=== PATIENT | male | born 1990 | race Caucasian/White ===

== ENCOUNTER 2018-05-24 19:29 | Emergency (ER) | payer OTHER, SELFPAY ==
[2018-05-24 19:31] VITALS: BP 150/102; PULSE 91; RESP 17; TEMP 36.8; O2SAT 97; BMI 26.5
--- NOTE | 2018-05-24 20:59 | ED.VISSUMM ---
- ER Visit Summary Date of Service: 05/24/18 Chief Complaint: Left ear pain History of Present Illness: The patient is a 27 M who initially had nasal congestion. He developed ear pain. He was seen at a urgent care center on Friday and prescribed amoxicillin 500 mg 3 times daily. He presents because of persistent pain with no improvement. Denies headache. Denies any ocular, visual symptoms. He denies any muffled hearing. Does report ringing in his ears. Also complains of jaw pain. Denies any dental pain. He denies sore throat. Eyes change in his voice. When significant other was asked she agrees that his voice does sound nasal. Physical Examination: Patient appears no distress. Blood pressure is elevated. Nasal mucosa is boggy. Right TM is normal. Left TM is dull with no erythema. External auditory canals normal. Posterior pharynx unremarkable. Heart is regular. Lungs clear to auscultation. There are no skin lesions noted. Trach is midline. There is no stridor. There is no cervical lymphadenopathy. There is no discomfort with pushing on the tragus or pulling on the auricle. Test Results: None Emergency Department Course and Treatment: Patient was informed he is having discomfort because there is water behind the eardrum. He was informed his illness is a viral illness and antibiotics do not make viral illnesses better. Treatment Plan: Decongestant and anti-inflammatory Disposition: Discharged home Impression: Left ear pain secondary to serous otitis Viral upper respiratory infection This note was generated with [employer] dictation software. It may contain incorrect words, spelling, and punctuation that were not noted in review of the chart prior to signing ED Disposition - Plan for ED Patient: Disposition: Home or Assisted Living Chief Complaint: Ear Problem Instructions: ED Otitis Media Serous Adult, ED URI Viral Referrals: NOT,DEFINED [Primary Care Provider] - Doctor,Your [STAFF PHYSICIAN] - 1 Week if not improving
[2018-05-24 21:32] VITALS: BP 148/70; PULSE 90; RESP 18; O2SAT 96
== END 2018-05-24 21:33 | disposition home or self-care (01) ==
LOC: ED 21:14
PROVIDERS: Emergency Provider Emergency Medicine
DX: H65.92 Unspecified nonsuppurative otitis media, left ear (principal); H92.02 Otalgia, left ear; J06.9 Acute upper respiratory infection, unspecified
CPT/HCPCS: 99282

== ENCOUNTER 2021-12-28 16:46 | Outpatient (CLI) | payer OTHER, SELFPAY ==
[2021-12-28 17:36] LABS: Absolute Lymphocyte Count 1.95 X10^3/uL (0.83-4.51); Absolute Neutrophil Count 4.3 X10^3/uL (2.0-7.7); Basophil# 0.03 X10^3/uL; Basophil% 0.4 % (0-1); Eosinophil# 0.06 X10^3/uL; Eosinophils% 0.9 % (0-5); Hematocrit 46.1 % (40-54); Hemoglobin 15.5 g/dL (13.0-16.5); Lymphocyte # 1.95 X10^3/ul (0.83-4.51); Lymphocyte % 28.6 % (19-41); Mean Corp Hgb Conc 33.6 g/dL (32-36); Mean Corpuscular Hgb 29.4 pg (27.0-32.0); Mean Corpuscular Volume 87.5 fL (80-94); Mean Platelet Vol. 11.2 fl (6.2-12.0); Monocyte# 0.48 X10^3/uL; NRBC Flagged by Analyzer 0 % (0-5); Neutrophil # 4.27 X10^3/uL (2.7-7.7); Neutrophil % 62.8 % (47-70); Platelet Count 212 K/mm3 (150-450); RBC Distribution Width CV 12.2 % (11.6-14.6); RBC Distribution Width SD 39.1 fl (35.1-43.9); Red Blood Count 5.27 M/mm3 (4.6-6.2); White Blood Count 6.8 K/mm3 (4.4-11.0)
[2021-12-28 18:28] LABS: Anion Gap 9 (5-15); BUN 17 mg/dL (7-18); BUN/Creat Ratio 15.9 RATIO (10-20); Calcium,Total 9.4 mg/dL (8.5-10.1); Chloride 106 mmol/L (98-107); Cholesterol 177 mg/dL (200); Creatinine, Serum 1.07 mg/dL (0.70-1.30); EST Glomerular Filtration Rate 85 mL/min (>60); Est Glom Filt Rate - Afr Amer 103 mL/min (>60); Glucose 79 mg/dL (74-106); High Density Lipoprotein 63 mg/dL; Potassium 3.8 mmol/L (3.5-5.1); Sodium Level 139 mmol/L (136-145); Triglycerides 51 mg/dL; Very Low Density Lipoprotein 10 mg/dL (5-40)
== END 2021-12-28 23:59 | disposition home or self-care (01) ==
LOC: MFPLAB 16:47
PROVIDERS: PCP Family Medicine; Referring Provider Family Medicine; Visit Provider Family Medicine
DX: Z00.00 Encounter for general adult medical examination without abnormal findings (principal)
CPT/HCPCS: 36415; 80048; 80061; 85025

== ENCOUNTER 2023-03-19 05:53 | Day surgery (SDC) | payer OTHER, SELFPAY ==
--- NOTE | 2023-03-13 13:45 | EKG12_ITS ---
Test Reason : PRE OP Blood Pressure : / mmHG Vent. Rate : 097 BPM Atrial Rate : 097 BPM P-R Int : 146 ms QRS Dur : 092 ms QT Int : 340 ms P-R-T Axes : 066 069 040 degrees QTc Int : 431 ms Normal sinus rhythm with sinus arrhythmia Normal ECG Confirmed by KAYLEY HIGGINBOTHAM, GLORIA ([id number]), senior technical editor GALILEO GRULLON ([id number]) on 03/14/2023 8:14:04 AM Referred By: Ender Angulo Confirmed By:GLORIA ZALDIVAR MD
[2023-03-13 14:17] LABS: Hematocrit 46.7 % (40-54); Hemoglobin 15.6 g/dL (13.0-16.5); Mean Corp Hgb Conc 33.4 g/dL (32-36); Mean Corpuscular Hgb 30.4 pg (27.0-32.0); Mean Corpuscular Volume 90.9 fL (80-94); Mean Platelet Vol. 10.8 fl (6.2-12.0); Platelet Count 216 K/mm3 (150-450); RBC Distribution Width CV 12.4 % (11.6-14.6); RBC Distribution Width SD 41.1 fl (35.1-43.9); Red Blood Count 5.14 M/mm3 (4.6-6.2); White Blood Count 5.3 K/mm3 (4.4-11.0)
[2023-03-13 14:29] LABS: Partial Thromboplast Time 32.8 Seconds (24.1-36.2); Prothrombin Time (Protime)PT. 13.4 SECONDS (11.7-14.9)
[2023-03-13 14:51] LABS: AST(SGOT) 20 U/L (15-37); Alanine Aminotransfer ALT/SGPT 31 U/L (16-61); Alkaline Phosphatase 103 U/L (45-117); Anion Gap 6 (5-15); BUN 15 mg/dL (7-18); BUN/Creat Ratio 11.3 RATIO (10-20); Calcium,Total 9.1 mg/dL (8.5-10.1); Chloride 107 mmol/L (98-107); Creatinine, Serum 1.33 mg/dL (0.70-1.30); EST Glomerular Filtration Rate 66 mL/min (>60); Est Glom Filt Rate - Afr Amer 80 mL/min (>60); Globulin 3.8 g/dL (2.2-4.2); Glucose 87 mg/dL (74-106); Potassium 3.8 mmol/L (3.5-5.1); Protein, Total 7.8 g/dL (6.4-8.2); Sodium Level 139 mmol/L (136-145)
[2023-03-19 06:27] VITALS: BP 131/95; PULSE 103; RESP 16; TEMP 37.4; O2SAT 100; BMI 27.6
--- NOTE | 2023-03-19 06:32 | HP.PCM_ITS ---
History and Physical Date of Admission: 03/19/23 Intake Vital Signs ? 03/06/2309:19 Weight: 203 lb BP 142/102 H Blood Pressure Location Rt brachial Position Sitting Respiration 17 Pulse 90 Pulse Source Monitor Pulse Oximetry (%) 98 Oxygen Delivery Method room air Intake Visit Reasons:?UMBILICAL HERNIA Chief Complaint: umbilical hernia Allergies No Known Allergies Allergy (Verified 03/06/23 09:22) PFSH Family History?(Updated 03/06/23 @ 09:19 by Alejandra Taveras) Father Colon cancer Diabetes HypertensionMother Hypertension Social History?(Updated 03/06/23 @ 09:19 by Alejandra Taveras) Smoking Status:? Current every day smoker alcohol intake:? current substance use type:? marijuana HPI HPI HPI: Patient is a 32-year-old male says he has a umbilical hernia.? He reports that he has had this for several years but is becoming worse.? Is becoming larger and more painful.? Patient denies any fevers or chills or nausea or vomiting. ROS General General: No weight change, appetite, fatigue, colon cancer, breast cancer or weakness HEENT HEENT: No difficulty swallowing, eye injury, eye surgery, swollen glands or hoarseness Endo Endocrine: No thyroid disease, diabetes mellitus, thyroid cancer, Hair loss, heat intolerance or cold intolerance Skin Skin: No rash or changing moles Breast Breast: No left breast lump, right breast lump, nipple discharge, breast pain, abnormal mammogram, abnormal US or breast enlargement Musc Musculoskeletal: No back problems, arthritis, rheumatoid arthritis, gout or joint pain Cardio Cardiovascular: Yes high blood pressure; No murmur, pacemaker, heart disease, atrial fibrillation, heart attack, heart stent, palpitations, shortness of breat with exertion or chest pain Psych Psychiatric: Yes depression and anxiety; No hearing voices Resp Respiratory: No shortness of breath, No sleep apnea, No cough, No COPD, No asthma, No emphysema and No wheezing Gastro Gastrointestinal: Yes abdominal pain, No nausea or vomiting, No diarrhea, No constipation, No blood in stool, No acid reflux, No hemorrhoids, No ulcers, No g allbladder problem and No black,tarry stools Edgar Hematologic: No blood thinners, No blood disorders, No bleeding, No anemia and No blood clots Neuro Neurologic: No system reviewed and no additional complaints, except as documented, No as per HPI, No abnormal gait, No abnormal hearing, No abnormal movements, No abnormal speech, No behavioral changes, No burning sensations, No confusion, No convulsions, No disequilibrium, No dizziness, No localized weakness, No frequent falls, No headache(s), No lack of coordination, No loss of vision, No memory loss, No numbness, No other visual disturbances, No radicular pain, No restless legs, No sensory deficit, No syncope, No tingling, No tremor(s), No weakness and No other Exam Const General: cooperative Orientation: alert and oriented x3 HENMT Head: normal to inspection Neck Neck: normal visual inspection and full ROM Chest Chest palpation & inspection: normal inspection of the chest Resp Effort & Inspection: normal respiratory effort Auscultation: clear to auscultation bilaterally Cardio Rate: regular rate Rhythm: regular rhythm GI Inspection: non-distended Palpation: soft, hernia umbilical and nontender Skin General: no rashes or lesions noted Neuro General: patient alert and patient oriented x3 Extrem General: full ROM Psych Appearance: grossly normal Mental Status: mental status grossly normal Assessment and Plan Assessment and Plan (1) Umbilical hernia: ?Status:?Acute ?Qualifiers: ?Obstruction and gangrene presence:?without obstruction or gangrene? Q ualified Code(s):?K42.9 - Umbilical hernia without obstruction or gangrene ?Plan: Patient has a small umbilical hernia.? I was unable to fully reduce it but it appears to contain fat.? I discussed open repair of the hernia.? I discussed using mesh if the defect is over a centimeter.? I discussed the risks including but not limited to bleeding, infection, injury to underlying organs.? Patient understands the risk and is willing to proceed. Ender Angulo MD Pager: [facility] [address] [place] [address], [address] [place] [address] Office: I have examined the patient and the H&P has been reviewed. There are no clinical changes since date of exam.
[2023-03-19] MEDS: Lactated Ringers 1,000 ML 15 ML IV (06:58)
[2023-03-19] MEDS: Cefazolin 2 GM in 0.9% Normal Saline 100 ML IV (07:32)
[2023-03-19] MEDS: Bupivacaine Mpf 0.5% 30 ML VIAL (07:42)
[2023-03-19] MEDS: Lidocaine 1% (20 ml mdv) 20 ML Vial (07:42)
--- NOTE | 2023-03-19 08:18 | PCM.OPRPT ---
Report of Operation Date of Procedure: 03/19/23 Pre-Operative Diagnosis: Umbilical hernia Post-Operative Diagnosis: Incarcerated umbilical hernia, 2 cm Surgery/Procedure Performed:: Umbilical hernia repair with mesh Specimen's removed: None Description of Procedure: Patient was brought back to the operating room and anesthesia was induced. The abdomen was prepped and draped in usual sterile fashion. A curvilinear incision was marked superior to the umbilicus and then injected with local anesthetic. Incision was made with scalpel. The hernia sac was much larger than it felt and it was unable to be reduced. The inferior fascia was identified and a right angle was placed under it and sharply the fascia was incised approximately 2 mm to allow for reduction of the hernia sac and its contents. Once the hernia sac was reduced the preperitoneal area was dissected free to allow for mesh placement. The defect was approximately 2 cm. The contents were fully reduced and there was good dissection circumferentially to allow for mesh placement. A small Ventralex ST mesh was placed in the preperitoneal space. It was sutured to the anterior fascia using 2-0 PDS suture. Next it was irrigated and suctioned dry. The fascia was then reapproximated in a transverse fashion using interrupted 0 Nurolon sutures. The subcutaneous tissue was irrigated and suctioned dry. The incision was closed with interrupted 3-0 Vicryl sutures and a running 4-0 Monocryl suture. Steri-Strips and bandages were applied. Patient was taken to PACU in stable condition. Grafts/Implants Used: Small Ventralex ST mesh Admit VTE Documentation VTE Mechan Device Prophylaxis: SCD's
--- NOTE | 2023-03-19 08:20 | DCINST_ITS ---
Discharge Instructions Procedure Hernia Diet Discharge Diet: Light diet - advance as tolerated Activity Discharge Activity: May Not Drive (for 2-3 days or while taking narcotic pain meds.) and May Shower (with the bandage in place 1-2 days after surgery.) Lifting Restrictions: 20 pounds for 6 weeks. Additional Activity Instructions:: Climbing stairs is fine, walking is encouraged. Sitting in bed may be uncomfortable. Sitting up using your lateral muscles (sitting up sideways) is usually more comfortable. Do not drive, work heavy equipment of sign legal documents for 24 hours. Pain medications may cause nausea, you should typically eat light foods as you take your pain medications. Pain medications may also cause constipation. If you have difficulty with this, discuss with your doctor. Dressing / Incision Call your doctor if your incision/area has: Continuous Slow Oozing, Sudden Increased Bleeding, Increased Pain/ Swelling, Increased Redness and Foul Smelling Discharge Call your doctor if you observe: Fever of 101 or Higher Suture Line Care: Avoid Pulling/Pushing and Avoid Pinching/Bending Remove Dressing in: 2 days (Remove clear bandages in 2 days, remove Steri-Strips in 7 to 10 days.) Cleanse incision/area with: Soap & Water Follow Up Care Please Follow Up With: Ender Angulo MD When: Please call to schedule 2 week follow up appointment. [phone] Test Results: Test results from this visit will be discussed in further detail at your follow- up appointment, if applicable. Discharge Plan Admission Attending Provider: Ender Angulo Primary Care Provider: Binh Benites Instructions Additional Instructions / Restrictions: Ibuprofen and Tylenol for pain, Percocet for breakthrough. Discharge Orders/Prescriptions Prescriptions: New oxycodone-acetaminophen [Percocet] 5-325 mg tablet 1 tab PO Q4H PRN (Reason: pain) 5 Days Qty: 20 0RF Other Ambulatory Orders: 12 Lead EKG (Routine) Timeframe: [id number] Location: None Selected Ordered By: Dr. Pasha King Referrals / Follow Up: Binh Benites MD [Primary Care Provider] - Disposition Disposition (needs filled in before D/C Order can be placed): Home, Self Care
[2023-03-19 08:30] VITALS: BP 131/95; BP 143/98; PULSE 99; RESP 16; TEMP 37.2; O2SAT 97
[2023-03-19 08:45] VITALS: BP 131/95; BP 144/107; PULSE 92; RESP 16; O2SAT 98
[2023-03-19 08:54] VITALS: BP 131/95; BP 149/106; PULSE 84; RESP 16; TEMP 37.1; O2SAT 93
[2023-03-19] MEDS: Oxycodone/Apap 5/325 Tablet PO (09:22)
[2023-03-19 10:01] VITALS: BP 131/95; BP 145/91; PULSE 79; RESP 18; TEMP 36.9
[2023-03-19 10:50] VITALS: BP 131/95
== END 2023-03-19 10:55 | disposition home or self-care (01) ==
LOC: SDC 05:55 → AC 05:56
PROVIDERS: Anesthesiology; PCP Family Medicine; Referring Provider Surgery; Visit Provider Surgery
PROC: (CPT 49592; principal; 2023-03-19 07:15)
DX: K42.0 Umbilical hernia with obstruction, without gangrene (principal); F17.200 Nicotine dependence, unspecified, uncomplicated
CPT/HCPCS: 49592; 00830; 36415; 80048; 80076; 85027; 85610; 85730; 93005; J7120; C1781; J2405

== ENCOUNTER → 2024-06-23 | Outpatient (CLI) | payer OTHER, SELFPAY ==
[2024-06-23 10:07] LABS: Absolute Lymphocyte Count 1.12 X10^3/uL (0.83-4.51); Basophil# 0.02 X10^3/uL; Basophil% 0.3 % (0-1); Eosinophil# 0.01 X10^3/uL; Eosinophils% 0.1 % (0-5); Hematocrit 48.8 % (40-54); Hemoglobin 16.3 g/dL (13.0-16.5); Lymphocyte # 1.12 X10^3/ul (0.83-4.51); Lymphocyte % 14.5 % (19-41); Mean Corp Hgb Conc 33.4 g/dL (32-36); Mean Corpuscular Hgb 29.5 pg (27.0-32.0); Mean Corpuscular Volume 88.2 fL (80-94); Mean Platelet Vol. 10.6 fl (6.2-12.0); Monocyte# 0.52 X10^3/uL; Monocyte% 6.7 % (0-10); NRBC Flagged by Analyzer 0 % (0-5); Neutrophil # 6.03 X10^3/uL (2.7-7.7); Neutrophil % 78.1 % (47-70); Platelet Count 267 K/mm3 (150-450); RBC Distribution Width CV 12.9 % (11.6-14.6); RBC Distribution Width SD 41.8 fl (35.1-43.9); Red Blood Count 5.53 M/mm3 (4.6-6.2); White Blood Count 7.7 K/mm3 (4.4-11.0)
[2024-06-23 10:27] LABS: ALB/GLOB Ratio 1.1 RATIO (0.9-2.4); AST(SGOT) 23 U/L (15-37); Alanine Aminotransfer ALT/SGPT 29 U/L (16-61); Albumin, Serum 4.4 g/dL (3.2-5.0); Alkaline Phosphatase 118 U/L (45-117); Anion Gap 7 (5-15); BUN 13 mg/dL (7-18); BUN/Creat Ratio 11.7 RATIO (10-20); Calcium,Total 10.3 mg/dL (8.5-10.1); Chloride 103 mmol/L (98-107); Creatinine, Serum 1.11 mg/dL (0.70-1.30); EST Glomerular Filtration Rate 81 mL/min (>60); Est Glom Filt Rate - Afr Amer 98 mL/min (>60); Glucose 112 mg/dL (74-106); Lipase 29 U/L (13-75); Potassium 3.8 mmol/L (3.5-5.1); Protein, Total 8.4 g/dL (6.4-8.2); Sodium Level 137 mmol/L (136-145)
== END | disposition home or self-care (01) ==
LOC: MFPLAB 09:25
PROVIDERS: PCP Family Medicine; Visit Provider Family Medicine
DX: F10.10 Alcohol abuse, uncomplicated (principal); R10.9 Unspecified abdominal pain
CPT/HCPCS: 36415; 80053; 82140; 83690; 85025

== ENCOUNTER → 2024-06-25 | Outpatient (CLI) | payer OTHER, SELFPAY ==
--- NOTE | 2024-06-25 08:03 | US_ITS ---
STUDY: ABDOMINAL ULTRASOUND - RIGHT UPPER QUADRANT REASON FOR VISIT: Male, 34 years old ABD PAIN TECHNIQUE: Ultrasound evaluation of the right upper quadrant was performed with real-time and static looney-scale imaging. TECHNICAL QUALITY: Adequate. COMPARISON: None. FINDINGS: Liver: The liver measures 16.8 cm. There is normal echogenicity of the liver. The bile ducts are within normal limits. There is hepatic color flow. The direction of portal flow is hepatopetal. There is no demonstrated mass lesion. Gallbladder: Normal distended gallbladder. The gallbladder wall measures 1.2 mm. There is a negative sonographic Srinivasan''s sign. There is no pericholecystic fluid. There are no gallstones. Small amount of sludge is seen along the dependent portion of the gallbladder lumen. Common Bile Duct (C.B.D.): The common bile duct measures 3.3 mm. Pancreas: Normal size of the head, body and tail of the pancreas. There is normal echogenicity of the pancreas. There is no demonstrated pancreatic mass or cyst. Right Kidney: Normal size of the right kidney. The right kidney measures 10 cm x 6.3 cm x 5.3 cm. Normal renal cortex. The right cortex measures 1.6 cm. There is no demonstrated renal mass or cyst. There is no right hydronephrosis. US/Abdomen Limited IMPRESSION: Normal right upper quadrant ultrasound examination. Electronically Signed: Marcell Soriano MD at 10:48 EDT ,
== END | disposition home or self-care (01) ==
LOC: US 07:57
PROVIDERS: PCP Family Medicine; Referring Provider Family Medicine; Visit Provider Family Medicine
DX: R10.9 Unspecified abdominal pain (principal)
CPT/HCPCS: 76705